=== PATIENT | female | born 1955 | race Caucasian/White ===

== ENCOUNTER 2017-03-27 22:05 | Inpatient (IN) | payer BC ==
[~2017-03-27] VITALS: Ht 162.6 cm; Wt 93.8 kg
--- NOTE | ~2017-03-27 | HP ---
PATIENT'S NAME: NEHA TOBIN [facility] AGE: 62 Y [address] ROOM: [id number] [place], [place] [address] LOCATION: [facility] ADMIT DATE: 03/27/2017 History & Physical DISCHARGE DATE: FAMILY PHYSICIAN: PHYSICIAN, UNKNOWN ATTENDING PHYSICIAN: TARA STANLEY DATE OF SERVICE: CHIEF COMPLAINT: Right foot numbness after bitten by a rattlesnake. HISTORY OF PRESENT ILLNESS: This is a 62-year-old female. Around 8:00 p.m. last night on March 27, 2017, the patient went out from the house to feed her cat, and she inadvertently stepped on the right foot on a baby rattlesnake, and she felt that rattlesnake bit her once, and she felt this pain and numbness in the right foot. She called for help and her family member came out with a shovel and killed the rattlesnake and put the rattlesnake in a plastic bag and brought the patient and the rattlesnake in a plastic bag to the outside facility emergency room for evaluation. The patient was brought to the emergency room at [place], [place]. Over there, they gave the patient 1 dose of CroFab over 1 hour, which is the antidote for the rattlesnake bite. The patient tolerated the CroFab 1 dose without any complication or reaction. Before the CroFab was given, the patient also got 1 dose of IV Solu-Medrol 125 mg and also 1 dose of IV Benadryl 25 mg to prevent any allergic reaction. The patient's pain already went away on the right foot. Her only complaint is right foot numbness around the rattlesnake bite site. No pain, no drainage, no bleeding, no swelling, no erythema, no tenderness, and no finding of compartment syndrome. I have already examined her and got a history and already called the Poison Control, and Poison Control says that currently she does not have any absolute indication for another dose of CroFab, and we will watch her closely every hour, check the right foot to look for any signs of swelling or erythema or tenderness, at that time she would definitely will require CroFab. The patient denies any nausea or vomiting or chest pain or shortness of breath or any other symptoms. Prior to coming here, the patient already got 1 dose of the tetanus shot. REVIEW OF SYSTEMS: As mentioned in the history of present illness. All other systems reviewed and negative except those mentioned in the history of present illness. PAST MEDICAL HISTORY: 1. Gastroesophageal reflux disease. 2. Hypertension. 3. History of right breast carcinoma in situ, already had a breast reduction PATIENT'S NAME: NEHA TOBIN [facility] AGE: 62 Y [address] ROOM: [address] [address] LOCATION: [facility] ADMIT DATE: 03/27/2017 History & Physical DISCHARGE DATE: FAMILY PHYSICIAN: PHYSICIAN, UNKNOWN ATTENDING PHYSICIAN: TARA STANLEY surgery and already cured. ALLERGIES: NO KNOWN DRUG ALLERGIES ACCORDING TO THE PATIENT. HOME MEDICATIONS: Will be reconciled in the morning with the patient's pharmacy. SOCIAL HISTORY: The patient denies any alcohol or illegal drug or cigarette smoking. PAST SURGICAL HISTORY: 1. Status post appendectomy. 2. Status post bilateral breast reduction surgery in the past. FAMILY HISTORY: Father had a myocardial infarction at the age of 60 and from lung cancer when he was a heavy smoker. Mother had a myocardial infarction at the age of 60 and is still alive. PHYSICAL EXAMINATION: VITAL SIGNS: At the time of my dictation, temperature 98.1, heart rate 85, respirations 16, blood pressure 146/67, and saturation 98% on 1 L nasal cannula. Pain 0/10. GENERAL APPEARANCE: Alert and oriented x3. In no acute distress. HEENT: Pupils equally round and reactive to light. Extraocular muscles intact. Anicteric sclerae. Nasal turbinates are normal bilaterally. Moist oral mucosa. NECK: No JVD. CARDIOVASCULAR: Regular rate and rhythm. Normal S1, S2. No murmur, no rubs, no gallops. RESPIRATORY: Clear. Chest wall nontender to palpation. ABDOMEN: Soft, nontender, nondistended, normal bowel sounds, no hepatosplenomegaly, bowel sounds are present. No palpable mass. EXTREMITIES: No edema in the upper or lower extremities. In the right foot, in the plantar surface, there is a tiny about 1 to 3 mm of rattlesnake bite in the proximal 1/3rd of the upper portion of the sole of the right foot. There is no erythema or inflammation or pain or any drainage or bleeding in the rattlesnake bite area. There is some numbness surrounding the rattlesnake bite area. NEUROLOGIC: Mild numbness in the sole of the right foot, in the rattlesnake bite area. Otherwise, sensation is intact in all other parts of the body. Muscle strength is normal also. Otherwise, nonfocal. LABORATORY DATA: PATIENT'S NAME: NEHA TOBIN [facility] AGE: 62 Y [address] ROOM: [address] [address] LOCATION: [facility] ADMIT DATE: 03/27/2017 History & Physical DISCHARGE DATE: FAMILY PHYSICIAN: PHYSICIAN, UNKNOWN ATTENDING PHYSICIAN: TARA STANLEY Lactic acid 2.8. CPK 108. White blood cells 7.8, hemoglobin 13.4, hematocrit 40.9, platelets 229. Glucose 146, BUN 21, creatinine 1.0, sodium 143, potassium 3.4, chloride 111, CO2 of 23, calcium 8.6, phosphorus 2.2, GFR 56, anion gap 12.4, INR 0.98, PTT 28, fibrinogen 255. Urinalysis: 100 leukocytes, negative nitrite, bacteria is pending, white blood cell is pending, 25 blood, 15 protein. Procalcitonin pending. CRP less than 0.29. D- dimer 0.2. IMAGING STUDY: EKG on admission here, sinus rhythm without any acute ischemic changes, rate within normal limits. EKG was performed on admission here in our hospital. ASSESSMENT AND PLAN: 1. Regarding her rattlesnake bite in the right foot: I spoke to the Poison Control already and the recommendation per Poison Control is currently she does not require a second dose of CroFab unless she has swelling or pain or erythema or any signs of disseminated intravascular coagulation. For now, we will be doing the hourly check in the rattlesnake bite area looking for any development of swelling or erythema or pain or drainage. We will check the lab again including coagulation panel every 4 hours for 3 more sets. The patient can ambulate as tolerated and can have a cardiac diet. Pain control with IV morphine p.r.n. IV fluids for hydration. Per Poison Control, the patient can be discharged 24 hours after the admission, which is to be early Monday morning hours if everything stays unremarkable and the blood work unremarkable and the patient can walk without any problem. Poison Control also recommended blood work including CBC with differential, basic metabolic panel, liver function test, INR, PTT, fibrinogen, D-dimer, lactic acid, and procalcitonin as an outpatient on or on Monday with the primary care physician once the patient is discharged here on Wednesday, March 29, 2017. The blood work should be done as an outpatient by the primary care physician on March 30, 2017 or March 31, 2017. The patient can be transferred out of the ICU if the patient does not require any more CroFab. The patient will be in the ICU tonight and in the morning will be assessed by the hospitalist who will be taking care of the care for further plan of care. Please also touch base with Poison Control one more time before the patient is to be discharged on Monday, March 29, 2017. 2. Regarding her hypokalemia: We will replace with p.o. potassium chloride 40 mEq x1. 3. Regarding her hypophosphatemia: Replace with K-Phos Neutral tablet 1 tablet p.o. t.i.d. 4. Deep vein thrombosis prophylaxis: She will be on Lovenox subcu. Time spent on the day of admission 50 minutes including chart review, PATIENT'S NAME: NEHA TOBIN [facility] AGE: 62 Y [address] ROOM: [place] [address] LOCATION: [facility] ADMIT DATE: 03/27/2017 History & Physical DISCHARGE DATE: FAMILY PHYSICIAN: PHYSICIAN, UNKNOWN ATTENDING PHYSICIAN: TARA STANLEY interviewing the patient, examining the patient, addressing all the questions and concerns the patient had, and going over the plan of care with the patient, and I also addressed all the questions and concerns the family members had at the bedside to their satisfaction. This time also includes calling the Poison Control about the further plan of care and followup plan. Further plan of care will depend on clinical course. MD PUNEET NIXON/dougie /[id number] D: [id number] T: [id number] HISTORY & PHYSICAL
[2017-03-28 01:09] LABS: BASOPHIL % 0.5 %; EOSINOPHIL % 0.1 %; HEMATOCRIT 40.9 % (33.0-46.0); HEMOGLOBIN 13.4 g/dL (10.0-15.0); IMMATURE GRANULOCYTE % 0.3 %; LYMPHOCYTE # 0.7 K/uL (0.8-4.0); LYMPHOCYTE % 8.3 %; MCHC 32.8 gm/dL (32.0-36.5); MCV 94.7 fl (83.0-98.0); MONOCYTE # 0.1 K/uL (0.0-1.0); MONOCYTE % 0.9 %; MPV 10.6 fl (9.4-12.4); NEUTROPHIL # (ANC) 7.1 K/uL (1.8-7.8); NEUTROPHIL % 89.9 %; NRBC % 0 /100WBC (0-0.00); PLATELET COUNT 229 K/uL (150-450); RBC 4.32 M/uL (3.50-5.50); RDW-CV 12.7 % (11.9-14.6); WBC 7.8 K/uL (4.0-11.0)
[2017-03-28 01:19] LABS: INR - (THERAPEUTIC) 0.98 (0.92-1.07); PROTIME 10.3 SECONDS (9.8-11.4); PTT 28 SECONDS (25-32)
[2017-03-28 01:25] LABS: ANION GAP 12.4 (10.0-19.0); BLOOD UREA NITROGEN 21 mg/dL (6-24); CALCIUM 8.6 mg/dL (8.5-10.5); CHLORIDE 111 mMol/L (96-110); CO2 23 mMol/L (22-32); CPK 108 IU/L (21-215); ESTIMATED GFR (MDRD EQUATION) 56; PHOSPHORUS 2.2 mg/dL (2.5-4.9); POTASSIUM 3.4 mMol/L (3.7-5.1); SODIUM 143 mMol/L (135-145)
[2017-03-28 01:51] LABS: BILIRUBIN URINE NEGATIVE (NEGATIVE); BLOOD URINE 25 /UL (NEGATIVE); COLOR URINE YELLOW (YELLOW); GLUCOSE URINE NEGATIVE (NEGATIVE); KETONE URINE NEGATIVE (NEGATIVE); LEUKOCYTES URINE 100 /UL (NEGATIVE); NITRITE URINE NEGATIVE (NEGATIVE); PROTEIN URINE 15 mg/dL (NEGATIVE); TURBIDITY URINE 1+ (CLEAR); UROBILINOGEN URINE NORMAL (NORMAL)
[2017-03-28 01:56] LABS: BACTERIA URINE FEW (NEGATIVE); RBC URINE 0-2 #/HPF (NEGATIVE)
[2017-03-28 02:24] LABS: ALBUMIN 3.6 gm/dL (3.5-5.0); ALK PHOS 48 IU/L (33-138); ALT 26 IU/L (12-78); AST 19 IU/L (10-40); TOTAL BILIRUBIN 0.2 mg/dL (0.0-1.5); TOTAL PROTEIN 6.4 g/dL (6.0-8.4)
[2017-03-28 05:37] LABS: BASOPHIL % 0.2 %; HEMATOCRIT 41.3 % (33.0-46.0); HEMOGLOBIN 13.7 g/dL (10.0-15.0); IMMATURE GRANULOCYTE % 0.2 %; LYMPHOCYTE # 0.7 K/uL (0.8-4.0); MCH 31.3 pg (27.0-34.0); MCHC 33.2 gm/dL (32.0-36.5); MCV 94.3 fl (83.0-98.0); MONOCYTE % 0.6 %; MPV 10.3 fl (9.4-12.4); NEUTROPHIL # (ANC) 4.6 K/uL (1.8-7.8); NRBC % 0 /100WBC (0-0.00); RBC 4.38 M/uL (3.50-5.50); RDW-CV 12.6 % (11.9-14.6); WBC 5.4 K/uL (4.0-11.0)
[2017-03-28 05:40] LABS: PLATELET COUNT 291 K/uL (150-450)
[2017-03-28 05:42] LABS: INR - (THERAPEUTIC) 0.99 (0.92-1.07); PROTIME 10.4 SECONDS (9.8-11.4); PTT 30 SECONDS (25-32)
[2017-03-28 05:50] LABS: ALBUMIN 3.4 gm/dL (3.5-5.0); ALK PHOS 41 IU/L (33-138); ALT 26 IU/L (12-78); AST 19 IU/L (10-40); BLOOD UREA NITROGEN 19 mg/dL (6-24); CALCIUM 8.5 mg/dL (8.5-10.5); CHLORIDE 112 mMol/L (96-110); CO2 22 mMol/L (22-32); CPK 104 IU/L (21-215); CREATININE 0.9 mg/dL (0.5-1.1); ESTIMATED GFR (MDRD EQUATION) > 60; SODIUM 144 mMol/L (135-145); TOTAL BILIRUBIN 0.2 mg/dL (0.0-1.5); TOTAL PROTEIN 6.6 g/dL (6.0-8.4)
[2017-03-28] MEDS ORDERED: TRIAMTERENE-HC1 EACH PO (08:29)
[2017-03-28] MEDS ORDERED: ATACAND16 MG PO (08:29)
[2017-03-28] MEDS ORDERED: LIPITOR10 MG PO (08:30)
[2017-03-28] MEDS ORDERED: LOPRESSOR25 MG PO (08:30)
[2017-03-28] MEDS ORDERED: XALATAN2.5 ML OPHTH (08:31)
[2017-03-28] MEDS ORDERED: METAMUCIL660 GM PO (08:32)
[2017-03-28] MEDS ORDERED: CENTRUM SILVER1 TAB PO (08:34)
[2017-03-28] MEDS ORDERED: ZANTAC150 MG PO (08:34)
[2017-03-28 10:03] LABS: BASOPHIL % 0.1 %; HEMATOCRIT 39.3 % (33.0-46.0); HEMOGLOBIN 13.2 g/dL (10.0-15.0); IMMATURE GRANULOCYTE % 0.3 %; LYMPHOCYTE # 0.7 K/uL (0.8-4.0); LYMPHOCYTE % 6.5 %; MCH 31.8 pg (27.0-34.0); MCHC 33.6 gm/dL (32.0-36.5); MCV 94.7 fl (83.0-98.0); MONOCYTE # 0.5 K/uL (0.0-1.0); MPV 10.2 fl (9.4-12.4); NEUTROPHIL # (ANC) 10.1 K/uL (1.8-7.8); NEUTROPHIL % 89.1 %; NRBC % 0 /100WBC (0-0.00); PLATELET COUNT 287 K/uL (150-450); RBC 4.15 M/uL (3.50-5.50); RDW-CV 12.8 % (11.9-14.6); WBC 11.3 K/uL (4.0-11.0)
[2017-03-28 10:22] LABS: ALBUMIN 3.3 gm/dL (3.5-5.0); ALK PHOS 41 IU/L (33-138); ALT 23 IU/L (12-78); ANION GAP 13.5 (10.0-19.0); AST 20 IU/L (10-40); BLOOD UREA NITROGEN 17 mg/dL (6-24); CALCIUM 8.8 mg/dL (8.5-10.5); CHLORIDE 112 mMol/L (96-110); CO2 23 mMol/L (22-32); CPK 95 IU/L (21-215); CREATININE 0.9 mg/dL (0.5-1.1); ESTIMATED GFR (MDRD EQUATION) > 60; POTASSIUM 3.5 mMol/L (3.7-5.1); SODIUM 145 mMol/L (135-145); TOTAL PROTEIN 6.4 g/dL (6.0-8.4)
[2017-03-28 10:24] LABS: PHOSPHORUS 1.7 mg/dL (2.5-4.9); TOTAL BILIRUBIN 0.3 mg/dL (0.0-1.5)
[2017-03-28 10:33] LABS: INR - (THERAPEUTIC) 0.99 (0.89-1.05); PROTIME 10.4 SECONDS (9.1-10.7); PTT 28 SECONDS (23-30)
[2017-03-28 14:12] LABS: BASOPHIL % 0.2 %; HEMATOCRIT 39.7 % (33.0-46.0); HEMOGLOBIN 13.3 g/dL (10.0-15.0); IMMATURE GRANULOCYTE # 0.1 K/uL (0.0-0.3); IMMATURE GRANULOCYTE % 0.5 %; LYMPHOCYTE # 1.2 K/uL (0.8-4.0); LYMPHOCYTE % 9.8 %; MCH 31.7 pg (27.0-34.0); MCHC 33.5 gm/dL (32.0-36.5); MCV 94.5 fl (83.0-98.0); MONOCYTE # 0.9 K/uL (0.0-1.0); MONOCYTE % 6.8 %; NEUTROPHIL # (ANC) 10.4 K/uL (1.8-7.8); NEUTROPHIL % 82.7 %; NRBC % 0 /100WBC (0-0.00); PLATELET COUNT 295 K/uL (150-450); RDW-CV 12.9 % (11.9-14.6); WBC 12.6 K/uL (4.0-11.0)
[2017-03-28 14:21] LABS: INR - (THERAPEUTIC) 0.99 (0.92-1.07); PROTIME 10.4 SECONDS (9.8-11.4); PTT 26 SECONDS (25-32)
[2017-03-28 14:29] LABS: ANION GAP 11.7 (10.0-19.0); BLOOD UREA NITROGEN 17 mg/dL (6-24); CALCIUM 8.7 mg/dL (8.5-10.5); CHLORIDE 111 mMol/L (96-110); CO2 26 mMol/L (22-32); CPK 95 IU/L (21-215); CREATININE 0.8 mg/dL (0.5-1.1); ESTIMATED GFR (MDRD EQUATION) > 60; PHOSPHORUS 2.5 mg/dL (2.5-4.9); POTASSIUM 3.7 mMol/L (3.7-5.1); SODIUM 145 mMol/L (135-145)
[2017-03-28 18:20] LABS: BASOPHIL % 0.2 %; HEMATOCRIT 40.7 % (33.0-46.0); HEMOGLOBIN 13.4 g/dL (10.0-15.0); IMMATURE GRANULOCYTE % 0.3 %; LYMPHOCYTE # 2.1 K/uL (0.8-4.0); MCH 31.4 pg (27.0-34.0); MCHC 32.9 gm/dL (32.0-36.5); MCV 95.3 fl (83.0-98.0); MONOCYTE # 0.6 K/uL (0.0-1.0); MONOCYTE % 4.6 %; MPV 10.1 fl (9.4-12.4); NEUTROPHIL # (ANC) 10.4 K/uL (1.8-7.8); NEUTROPHIL % 78.9 %; NRBC % 0 /100WBC (0-0.00); PLATELET COUNT 312 K/uL (150-450); RBC 4.27 M/uL (3.50-5.50); RDW-CV 12.9 % (11.9-14.6); WBC 13.1 K/uL (4.0-11.0)
[2017-03-28 18:28] LABS: INR - (THERAPEUTIC) 0.98 (0.92-1.07); PROTIME 10.3 SECONDS (9.8-11.4)
[2017-03-29 05:29] LABS: BASOPHIL % 0.4 %; EOSINOPHIL # 0.1 K/uL (0.0-0.5); EOSINOPHIL % 0.6 %; HEMATOCRIT 37.2 % (33.0-46.0); HEMOGLOBIN 12.4 g/dL (10.0-15.0); IMMATURE GRANULOCYTE % 0.3 %; LYMPHOCYTE # 3.5 K/uL (0.8-4.0); LYMPHOCYTE % 36.5 %; MCH 31.6 pg (27.0-34.0); MCHC 33.3 gm/dL (32.0-36.5); MCV 94.9 fl (83.0-98.0); MONOCYTE # 0.6 K/uL (0.0-1.0); MONOCYTE % 6.4 %; MPV 10.1 fl (9.4-12.4); NEUTROPHIL # (ANC) 5.3 K/uL (1.8-7.8); NEUTROPHIL % 55.8 %; NRBC % 0 /100WBC (0-0.00); PLATELET COUNT 256 K/uL (150-450); RBC 3.92 M/uL (3.50-5.50); RDW-CV 13.2 % (11.9-14.6); WBC 9.5 K/uL (4.0-11.0)
== END 2017-03-29 13:15 | disposition disaster alternative care site (69) | DRG 918 ==
LOC: GICU 23:54 → GMSU 03-28 17:22
PROVIDERS: Hospitalist; ADMIT Internal Medicine
DX: T63.011A Toxic effect of rattlesnake venom, accidental (unintentional), initial encounter (principal); E83.39 Other disorders of phosphorus metabolism; I10 Essential (primary) hypertension; E87.6 Hypokalemia; K21.9 Gastro-esophageal reflux disease without esophagitis; E78.5 Hyperlipidemia, unspecified; Z86.000 Personal history of in-situ neoplasm of breast
CPT/HCPCS: J0840; J1650; J7050; J7120